=== PATIENT | female | born 1960 | race Caucasian/White ===

== ENCOUNTER 2017-10-22 08:46 | Emergency (ER) | payer OTHER ==
[~2017-10-22] VITALS: Ht 170.2 cm; Wt 90.9 kg
[2017-10-22 09:22] LABS: BASO # 0.1 x10^3/uL (0.0-0.2); BASO % 1 % (0-3); EOS # 0.1 x10^3/uL (0.0-0.7); EOS % 2 % (0-3); HEMATOCRIT 43.6 % (36.0-47.0); LYMPH # 2.3 x10^3/uL (1.0-4.8); LYMPH % 28 % (24-48); MEAN CORPUSCULAR HEMOGLOBIN 29 pg (25-35); MEAN CORPUSCULAR HGB CONC 34 g/dL (31-37); MEAN CORPUSCULAR VOLUME 85 fL (79-100); MONO # 0.6 x10^3/uL (0.0-1.1); MONO % 7 % (0-9); NEUT # 5.2 x10^3uL (1.8-7.7); NEUT % 62 % (31-73); PLATELET COUNT 187 x10^3/uL (140-400); RED BLOOD COUNT 5.15 x10^6/uL (3.50-5.40); WHITE BLOOD COUNT 8.3 x10^3/uL (4.0-11.0)
[2017-10-22 09:44] LABS: CALCIUM 9.7 mg/dL (8.5-10.1); GFR 57.6; MAGNESIUM 2.2 mg/dL (1.8-2.4); POTASSIUM 3.6 mmol/L (3.5-5.1); TOTAL BILIRUBIN 1.1 mg/dL (0.2-1.0)
[2017-10-22] MEDS ORDERED: LIDO:MAALOX 1:1 20 ML SINGLE DOSE. PO ONE (10:45)
--- NOTE | 2017-10-22 11:11 | PHYS DOC ---
Past History Past Medical History: GERD, High Cholesterol, Other Past Surgical History: Appendectomy, Cholecystectomy, Tonsillectomy, Other Smoking: Non-smoker Alcohol Use: Rarely Drug Use: None Adult General Chief Complaint Chief Complaint: CHEST PAIN HPI HPI 56-year-old female patient sent from her primary care physician office because of chest pain. Patient complaining of gradual onset of epigastric pain since ate lunch yesterday as a constant burning pain like acid reflux pain with nausea without radiation. Patient denies shortness of breath, vomiting, diarrhea and constipation, urinary symptom. Patient states she had the same pain previously with dyspepsia. Patient was seen by her primary care physician this morning and had negative EKG and treated with Aspirin sent to ER with more evaluation. Patient has positive family history of coronary artery disease. Review of Systems Review of Systems Constitutional: Denies fever or chills [] Eyes: Denies change in visual acuity, redness, or eye pain [] HENT: Denies nasal congestion or sore throat [] Respiratory: Denies cough or shortness of breath [] Cardiovascular: No additional information not addressed in HPI [] GI: Denies abdominal pain, nausea, vomiting, bloody stools or diarrhea [] : Denies dysuria or hematuria [] Musculoskeletal: Denies back pain or joint pain [] Integument: Denies rash or skin lesions [] Neurologic: Denies headache, focal weakness or sensory changes [] Endocrine: Denies polyuria or polydipsia [] All other systems were reviewed and found to be within normal limits, except as documented in this note. Current Medications Current Medications Current Medications Medications (Trade) Dose Ordered Sig/[facility] Start Time Stop Time Status Last Admin Dose Admin Multi-Ingredient Mouthwash/Gargle (Gi Cocktail) 20 ml 1X ONCE 10/22/17 10:45 10/22/17 10:46 DC 10/22/17 10:51 20 ML Allergies Allergies Allergies Coded Allergies Type Severity Reaction Last Updated Verified Sulfa (Sulfonamide Antibiotics) Allergy Unknown Hives 10/22/17 Yes codeine Allergy Unknown Hives 10/22/17 Yes Physical Exam Physical Exam Constitutional: Well developed, well nourished, no acute distress, non-toxic appearance. [] HENT: Normocephalic, atraumatic, oropharynx moist. [] Eyes: PERRLA, EOMI, conjunctiva normal, no discharge. [] Neck: Normal range of motion, no tenderness, supple, no stridor. [] Cardiovascular:Heart rate regular rhythm, no murmur [] Lungs & Thorax: Bilateral breath sounds clear to auscultation [] Abdomen: Bowel sounds normal, soft, no tenderness, no masses, no pulsatile masses. [] Skin: Warm, dry, no erythema, no rash. [] Back: No tenderness, no CVA tenderness. [] Extremities: No tenderness, no cyanosis, no clubbing, ROM intact, no edema. [] Neurologic: Alert and oriented X 3, normal motor function, normal sensory function, no focal deficits noted. [] Psychologic: Affect normal, judgement normal, mood normal. [] Current Patient Data Vital Signs Vital Signs Date Time Temp Pulse Resp B/P (MAP) Pulse Ox O2 Delivery O2 Flow Rate FiO2 10/22/17 08:46 98.0 79 19 96 Lab Results Laboratory Tests Test 10/22/17 09:08 White Blood Count 8.3 x10^3/uL (4.0-11.0) Red Blood Count 5.15 x10^6/uL (3.50-5.40) Hemoglobin 15.0 g/dL (12.0-15.5) Hematocrit 43.6 % (36.0-47.0) Mean Corpuscular Volume 85 fL (79-100) Mean Corpuscular Hemoglobin 29 pg (25-35) Mean Corpuscular Hemoglobin Concent 34 g/dL (31-37) Red Cell Distribution Width 14.0 % (11.5-14.5) Platelet Count 187 x10^3/uL (140-400) Neutrophils (%) (Auto) 62 % (31-73) Lymphocytes (%) (Auto) 28 % (24-48) Monocytes (%) (Auto) 7 % (0-9) Eosinophils (%) (Auto) 2 % (0-3) Basophils (%) (Auto) 1 % (0-3) Neutrophils # (Auto) 5.2 x10^3uL (1.8-7.7) Lymphocytes # (Auto) 2.3 x10^3/uL (1.0-4.8) Monocytes # (Auto) 0.6 x10^3/uL (0.0-1.1) Eosinophils # (Auto) 0.1 x10^3/uL (0.0-0.7) Basophils # (Auto) 0.1 x10^3/uL (0.0-0.2) Prothrombin Time 10.3 SEC (9.4-11.4) Prothrombin Time INR 1.0 (0.9-1.1) Sodium Level 138 mmol/L (136-145) Potassium Level 3.6 mmol/L (3.5-5.1) Chloride Level 106 mmol/L (98-107) Carbon Dioxide Level 22 mmol/L (21-32) Anion Gap 10 (6-14) Blood Urea Nitrogen 20 mg/dL (7-20) Creatinine 1.0 mg/dL (0.6-1.0) Estimated GFR (Cockcroft-Gault) 57.6 BUN/Creatinine Ratio 20 (6-20) Glucose Level 104 mg/dL (70-99) H Calcium Level 9.7 mg/dL (8.5-10.1) Magnesium Level 2.2 mg/dL (1.8-2.4) Total Bilirubin 1.1 mg/dL (0.2-1.0) H Aspartate Amino Transferase (AST) 27 U/L (15-37) Alanine Aminotransferase (ALT) 58 U/L (14-59) Alkaline Phosphatase 156 U/L (46-116) H Creatine Kinase 69 U/L (26-192) Creatine Kinase MB (Mass) 0.8 ng/mL (0.0-3.6) Creatine Kinase MB Relative Index 1.2 % (0-4) Troponin I Quantitative < 0.017 ng/mL (0-0.055) HT-Bth-K-Type Natriuretic Peptide 33 pg/mL (0-124) Total Protein 8.0 g/dL (6.4-8.2) Albumin 4.0 g/dL (3.4-5.0) Albumin/Globulin Ratio 1.0 (1.0-1.7) Lipase 83 U/L (73-393) EKG EKG EKG performed at primary care physician office at 0812 with heart rate of [address] and T-wave abnormalities[] Radiology/Procedures Radiology/Procedures Chest x-ray interpreted by me and was unremarkable.[] Course & Med Decision Making Course & Med Decision Making Pertinent Labs and Imaging studies reviewed. (See chart for details) Evaluation of patient in ER showed 56-year-old female patient with complaining of chest pain since yesterday. Patient wasn't started on diuretic medication by her dietitian for the last few days. Patient had unremarkable EKG performed at primary care physician office prior to arrival to ER and labs in ER. Patient treated with GI cocktail and felt better. Patient had mild elevation of alkaline phosphatase and instructed to follow-up with her primary care physician regarding elevation of alkaline phosphatase. Patient was instructed to hold on medication In by her dietitian because of possible esophagitis related to diet medication. Dragon Disclaimer Dragon Disclaimer This electronic medical record was generated, in whole or in part, using a voice recognition dictation system. Departure Departure: Impression: Primary Impression: Dyspepsia Additional Impressions: Non-cardiac chest pain Elevated alkaline phosphatase level Disposition: 01 HOME, SELF-CARE (at 1109) Condition: IMPROVED Referrals: GERSON COTTON (PCP) Patient Instructions: Diet for Gastroesophageal Reflux Disease, Adult, Gastroesophageal Reflux Disease, Adult Additional Instructions: Take [id number] omeprazole and Maalox Follow-up with your primary care physician in 2-3 days for more heart evaluation Return to ER if not getting better Problem Qualifiers TIN SCHWARZ MD Oct 22, 2017 11:11
[2017-10-22 11:26] VITALS: BP 105/69
--- NOTE | 2017-10-23 10:45 | RAD ---
Indication: Chest pain Technique: Upright portable chest radiograph was obtained. Comparison is from April 23, 2012. Findings: The lungs are clear. The cardiopulmonary silhouette is within normal limits. There is dextrocurvature in the thoracic spine. Leads overlie the patient. Impression: No acute thoracic findings. MTDD
== END 2017-10-22 11:26 | disposition home or self-care (01) ==
LOC: ER 08:46
DX: R10.13 Epigastric pain (principal); R07.89 Other chest pain; R74.8 Abnormal levels of other serum enzymes; K21.9 Gastro-esophageal reflux disease without esophagitis; E78.00 Pure hypercholesterolemia, unspecified; Z90.49 Acquired absence of other specified parts of digestive tract; Z88.2 Allergy status to sulfonamides; Z88.5 Allergy status to narcotic agent
CPT/HCPCS: 36415; 71045; 80053; 82553; 83690; 83735; 83880; 84484; 85025; 85610; 99285

== ENCOUNTER → 2021-04-25 | Outpatient (CLI) | payer OTHER ==
--- NOTE | 2021-04-26 11:17 | RAD ---
DATE: 04/25/2021 EXAM: MG BILAT SCREEN+FRANCISCO HISTORY: Screening. No personal or family history of breast cancer. COMPARISON: 11/23/2016 and 04/30/2014 This study was interpreted with the benefit of Computerized Aided Detection (CAD). Breast Density: SCATTERED The breast parenchyma shows scattered fibroglandular densities. Breast pare nchyma level B. FINDINGS: Multiple bilateral circumscribed benign-appearing masses are stable from 2017. Bilateral ca lcifications are unchanged. No suspicious mass, suspicious calcifications, or architectural distortio n. IMPRESSION: No evidence of malignancy. BI-RADS CATEGORY: 2 BENIGN FINDING(S) RECOMMENDED FOLLOW-UP: 12M 12 MONTH FOLLOW-UP PQRS compliance statement: Patient information was entered into a reminder system with a target due d ate for the next mammogram. Mammography is a sensitive method for finding small breast cancers, but it does not detect them all a nd is not a substitute for careful clinical examination. A negative mammogram does not negate a clin ically suspicious finding and should not result in delay in biopsying a clinically suspicious abnorma lity. "Our facility is accredited by the [employer] Mammography Program." Electronically signed by: Brittney Bowling MD (04/26/2021 11:15 AM) [id number]
== END ==
LOC: MAMMO 08:00
PROVIDERS: ATTEND Physician Assistant Medical
DX: Z12.31 Encounter for screening mammogram for malignant neoplasm of breast (principal)
CPT/HCPCS: 77063; 77067